=== PATIENT | female | born 1985 | race Hispanic/Latino ===

== ENCOUNTER 2024-10-26 21:40 | Emergency (ER) | payer SELFPAY ==
[~2024-10-26] VITALS: Ht 162.6 cm; Wt 70.8 kg
--- NOTE | 2024-10-26 22:04 | NUR ---
PT CARE ASSUMED AT THIS TIME
[2024-10-26 22:41] LABS: BASOPHILS # (AUTO) 0.07 K/uL (0.00-0.20); BASOPHILS % (AUTO) 0.7 % (0.0-5.0); EOSINOPHILS # (AUTO) 0.09 K/uL (0.00-0.70); EOSINOPHILS % (AUTO) 0.9 % (0.0-8.0); HEMATOCRIT 36.1 % (36-48); IMMATURE GRANULOCYTE ABSOLUTE 0.04 K/uL (0-1); LYMPHOCYTES # (AUTO) 1.5 K/uL (1.0-4.8); MEAN CORPUSCULAR HEMOGLOBIN 29.6 pg (27.0-33.0); MEAN CORPUSCULAR HGB CONC 33.8 g/dL (32.0-36.0); MEAN CORPUSCULAR VOLUME 87.6 fL (79-99); MONOCYTES # (AUTO) 0.5 K/uL (0.1-1.0); MONOCYTES % (AUTO) 5.2 % (3.0-13.0); NEUTROPHILS # (AUTO) 8.2 K/uL (1.8-7.7); NEUTROPHILS % (AUTO) 78.8 % (40.0-77.0); PLATELET COUNT (AUTO) 273 K/uL (130-400); RED BLOOD CELL COUNT(AUTO) 4.12 MIL/uL (4.00-5.50); RED CELL DISTRIBUTION WIDTH 12.3 % (11.0-15.5); WHITE BLOOD COUNT (AUTO) 10.3 K/uL (4.8-10.8)
[2024-10-26 22:44] LABS: APPEARANCE,URINE CLOUDY (CLEAR); BILIRUBIN,URINE NEGATIVE (NEGATIVE); COLOR,URINE YELLOW (YELLOW); GLUCOSE, URINE (UA) NEGATIVE (NEGATIVE); KETONES,URINE NEGATIVE (NEGATIVE); LEUKOCYTE ESTERASE ,URINE 500 Leu/uL (NEGATIVE); NITRATE,URINE NEGATIVE (NEGATIVE); OCCULT BLOOD,URINE MODERATE (NEGATIVE); PH,URINE 6.5 (5.0-8.0); PROTEIN,URINE 30 mg/dL (NEGATIVE); UROBILINOGEN,URINE 0.2 mg/dL (0.2-1.0)
[2024-10-26 22:46] LABS: ADD UA MICROSCOPIC YES
[2024-10-26 22:48] LABS: BACTERIA,URINE FEW /HPF (None Seen); MUCUS,URINE RARE LPF (None Seen); SQUAMOUS EPITHELIAL CELL,UR MANY /HPF (0-2); WBC,URINE TNTC /HPF (0-1)
[2024-10-26 22:49] LABS: HCG,QUALITATIVE URINE NEGATIVE (NEGATIVE)
[2024-10-26] MEDS: PANTOPrazole 40 MG/VIAL IVP ONE (22:52)
[2024-10-26] MEDS: 0.9%NACL 1000ML 1,000 ML IV ONE (22:52)
[2024-10-26] MEDS: ondanSETRON 4MG INJ IVP ONE (22:53)
[2024-10-26] MEDS: morPHINE 4 MG SYG IVP ONE (22:53)
[2024-10-26 23:05] LABS: CREATININE 0.8 mg/dL (0.5-1.0); POTASSIUM 3.5 mmol/L (3.5-5.1)
[2024-10-26 23:09] LABS: ALBUMIN 4.1 g/dL (3.5-5.0); BILIRUBIN,DIRECT 0.1 mg/dL (0.0-0.3); BILIRUBIN,TOTAL 0.6 mg/dL (0.2-1.0); TOTAL PROTEIN, SERUM 8.1 g/dL (6.0-8.3)
[2024-10-27] MEDS: cefTRIAXone 1G VIAL IVPB ONE (00:16)
[2024-10-27] MEDS ORDERED: NITR100C4 PO (00:36)
--- NOTE | 2024-10-27 00:37 | ERN ---
ED Note History of Present Illness Stated Complaint: MID BACK PAIN Chief Complaint: Back Pain-No Injury Time Seen by MD: 21:46 Time Seen by Midlevel: 21:46 Dictation: The patient is a 38-year-old female with history of gallstones who presents to the emergency department with complaints of epigastric pain, right upper abdominal pain that radiates to the back onset 3:30 p.m. associated with nausea and nonbloody vomiting. Patient denies any diarrhea or constipation. Denies any fevers. Denies any urinary discomfort. Allergies: Coded Allergies: No Known Drug Allergies (Unverified Allergy, Unknown, 10/26/24) Past Medical History Past Medical History: Gallstones Surgical History: None LMP: Oct 25, 2024 RN Note Reviewed/Agreed w/PFSH: Yes Review of System Dictation Constitutional: Negative for fever,chills, and weight loss Eyes: Negative for injury, pain,redness, and discharge ENT: Negative for injury,pain or swelling Cardiovascular: Negative for chest pain, palpitations, and edema Respiratory: Negative for shortness of breath, cough, and wheezing, Abdomen/GI: Negative for diarrhea, and constipation positive for abdominal pain, nausea, vomiting, Back: Negative for injury , positive for back : Negative for injury, bleeding and discharge MS/Extremity: Negative for injury and deformity Skin: Negative for rash, and discoloration Neuro: Negative for headache, weakness, numbness, tingling, and seizure Psych: Negative for suicide ideation, homicidal ideation, and hallucinations Initial Vital Sign VS Vital Signs Date Time Temp Pulse Resp B/P (MAP) Pulse Ox O2 Delivery O2 Flow Rate FiO2 10/26/24 21:42 98.1 86 18 121/79 100 Room Air 0 10/26/24 22:10 21 Physical Exam Dictation Vital Signs reviewed General Appearance: Alert, oriented x 3, no acute distress, well developed, nourished. Head and Face: non-traumatic. Eyes: PERRL, pink conjunctivas, eyelid no trauma, anterior chamber with arcus senilis. Ears: Pinnas intact and no signs of trauma or erythema ear canals clear and no discharge TM no erythema Nose: No discharge, no bleeding. Oropharynx: Mouth normal, tongue pink. pharynx clear,no erythema, tonsils no exudates, no abscesses noted, mucous membrane moist Neck: Supple, non-tender, no thyromegaly, no masses, no JVD, no bruits Breast:Deferred Chest:No tenderness, no crepitus, no paradoxical movement, no retractions Lungs:Clear, well-ventilated, symmetric, no rales, no wheezing, no rhonchi, no stridor, good breath sounds bilaterally Heart: Regular rate, regular rhythm, no murmur, no gallops Vascular: no peripheral edema, Abdomen: Soft, positive bowel sounds, nondistended, no guarding, nontender, no rebound, no masses no hepatomegaly, no splenomegaly, no Reyes's sign, no hernias. Rectal: Deferred Genital: Deferred Neurological: Normal speech, motor function intact, sensory function intact Musculoskeletal: Neck nontender, full range of motion, back nontender, full range of motion, Extremities: nontender, full range of motion Skin: Color pink, dry, no turgor, no rash, no lacerations, no abrasions, no contusions. Lymphatic: Deferred Results (Laboratory/Radiology) Laboratory/Radiology Laboratory Tests Test 10/26/24 21:56 10/26/24 22:27 Urine Color YELLOW (YELLOW) Urine Appearance CLOUDY (CLEAR) H Urine pH 6.5 (5.0-8.0) Urine Specific [place] 1.027 (1.001-1.031) Urine Protein 30 mg/dL (NEGATIVE) H Urine Glucose (UA) NEGATIVE mg/dL (NEGATIVE) Urine Ketones NEGATIVE mg/dL (NEGATIVE) Urine Occult Blood MODERATE (NEGATIVE) H Urine Nitrate NEGATIVE (NEGATIVE) Urine Bilirubin NEGATIVE mg/dL (NEGATIVE) Urine Urobilinogen 0.2 mg/dL (0.2-1.0) Urine Leukocyte Esterase 500 Grayson/uL (NEGATIVE) H Urine RBC 11-25 /HPF (0-1) H Urine WBC TNTC /HPF (0-1) H Urine Squamous Epithelial Cells MANY /HPF (0-2) Urine Bacteria FEW /HPF (None Seen) Urine HCG, Qualitative NEGATIVE (NEGATIVE) White Blood Count 10.3 K/uL (4.8-10.8) Red Blood Count 4.12 MIL/uL (4.00-5.50) Hemoglobin 12.2 g/dL (12.0-16.0) Hematocrit 36.1 % (36-48) Mean Corpuscular Volume 87.6 fL (79-99) Mean Corpuscular Hemoglobin 29.6 pg (27.0-33.0) Mean Corpuscular Hemoglobin Concent 33.8 g/dL (32.0-36.0) Red Cell Distribution Width 12.3 % (11.0-15.5) Platelet Count 273 K/uL (130-400) Mean Platelet Volume 10.6 fL (7.5-10.5) H Immature Granulocyte % (Auto) 0.4 % (0-1) Neutrophils (%) (Auto) 78.8 % (40.0-77.0) H Lymphocytes (%) (Auto) 14.0 % (21.0-51.0) L Monocytes (%) (Auto) 5.2 % (3.0-13.0) Eosinophils (%) (Auto) 0.9 % (0.0-8.0) Basophils (%) (Auto) 0.7 % (0.0-5.0) Neutrophils # (Auto) 8.2 K/uL (1.8-7.7) H Lymphocytes # (Auto) 1.5 K/uL (1.0-4.8) Monocytes # (Auto) 0.5 K/uL (0.1-1.0) Eosinophils # (Auto) 0.09 K/uL (0.00-0.70) Basophils # (Auto) 0.07 K/uL (0.00-0.20) Absolute Immature Granulocyte (auto 0.04 K/uL (0-1) Nucleated Red Blood Cells 0.0 % (0.0-0.19) Sodium Level 139 mmol/L (136-145) Potassium Level 3.5 mmol/L (3.5-5.1) Chloride Level 105 mmol/L (101-111) Carbon Dioxide Level 26 mmol/L (21-32) Blood Urea Nitrogen 17 mg/dL (7-18) Creatinine 0.8 mg/dL (0.5-1.0) Glomerular Filtration Rate Calc 97 mL/min (>90) Random Glucose 101 mg/dL (70-105) Total Calcium 9.0 mg/dL (8.5-10.1) Total Bilirubin 0.6 mg/dL (0.2-1.0) Direct Bilirubin 0.1 mg/dL (0.0-0.3) Aspartate Amino Transf (AST/SGOT) 15 U/L (10-37) Alanine Aminotransferase (ALT/SGPT) 25 U/L (12-78) Alkaline Phosphatase 59 U/L (50-136) Total Protein 8.1 g/dL (6.0-8.3) Albumin 4.1 g/dL (3.5-5.0) Lipase 44 U/L (16-77) Labs Reviewed?: Yes ED Course ED Course Orders Procedure Category Date Status Time Cbc With Differential LAB 10/26/24 Complete 21:57 ,Urine Test LAB 10/26/24 Complete 21:57 Urinalysis Profile LAB 10/26/24 Complete 21:57 0.9%Nacl 1000ml (Ns PHA 10/26/24 Complete 1000ml) 22:00 Morphine 4mg Syg PHA 10/26/24 Complete (Morphine 4mg Syg) 22:00 Ondansetron 4mg Inj PHA 10/26/24 Complete (Zofran 4mg Inj) 22:00 Pantoprazole 40mg Inj PHA 10/26/24 Complete (Protonix 40mg Inj 22:00 Lipase LAB 10/26/24 Complete 21:57 Basic Metabolic Panel LAB 10/26/24 Complete 21:57 Hepatic Function Panel LAB 10/26/24 Complete 21:57 Us Abdominal Ruq\Ltd US 10/26/24 Taken 21:57 Culture Urine JOHANA 10/26/24 In Process 22:46 Ceftriaxone 1g Vial PHA 10/27/24 Complete (Rocephine 1g Inj) 00:00 Current Medications Medications (Trade) Dose Ordered Sig/Rubens Route PRN Reason Start Time Stop Time Status Last Admin Dose Admin Ceftriaxone Sodium (ROCEphine 1G INJ) 1 gm ONCE ONCE IVPB 10/27/24 00:00 10/27/24 00:02 DC 10/27/24 00:16 Morphine Sulfate (morPHINE 4MG SYG) 4 mg ONCE ONCE IVP 10/26/24 22:00 10/26/24 22:01 DC 10/26/24 22:53 Ondansetron HCl (zoFRAN 4MG INJ) 4 mg ONCE ONCE IVP 10/26/24 22:00 10/26/24 22:01 DC 10/26/24 22:53 Pantoprazole Sodium (PROTonix 40MG INJ) 40 mg ONCE ONCE IVP 10/26/24 22:00 10/26/24 22:01 DC 10/26/24 22:52 Sodium Chloride 1,000 ml @ 0 mls/hr ONCE ONCE IV 10/26/24 22:00 10/26/24 22:01 DC 10/26/24 22:52 Vital Signs Date Time Temp Pulse Resp B/P (MAP) Pulse Ox O2 Delivery O2 Flow Rate FiO2 10/26/24 22:10 97.9 92 17 118/68 99 Room Air* 0 21 10/26/24 21:42 98.1 86 18 121/79 100 Room Air 0 Medical Decision Making MDM The patient is a 38-year-old female with history of gallstones who presents to the emergency department with complaints of epigastric pain, right upper abdominal pain that radiates to the back onset 3:30 p.m. associated with nausea and nonbloody vomiting. Patient denies any diarrhea or constipation. Denies any fevers. Denies any urinary discomfort. CBC showed no leukocytosis, no anemia, chemistry showed no electrolyte imbalance, negative lipase, negative liver enzymes, urinalysis positive for leukocyte esterase. Moderate blood but patient is on her menstrual cycle. Patient was giving IV Rocephin. Ultrasound revealed gallstones in the gallbladder, CBD 4 mm, on physical exam patient has no Reyes's sign, abdomen is soft and nontender. No flank pain. No CVA tenderness. Patient with stable vital signs, in no acute distress. Reports that she is no longer having any pain. Labs and imaging discussed with the patient who agrees to follow up with PCP. Differential diagnosis: Gastroenteritis, cholelithiasis, cholecystitis, dehydration Need for hospitalization: Patient does not meet criteria for hospitalization. There are no social concerns with this patient. DX & DISP Disposition: Discharge Departure Impression: Primary Impression: Biliary colic Additional Impressions: Cholelithiasis, Abdominal pain, UTI (urinary tract infection) Condition: Stable Scripts Nitrofurantoin Monohyd/M-Cryst (Macrobid 100 mg Capsule) 100 Mg Capsule 1 CAP PO BID for 5 Days, #10 CAP 0 Refills Prov: DEMETRIS MARTINEZ 10/27/24 Additional Instructions: Please take your antibiotics as prescribed and until finished. Avoid any fatty foods that exacerbate your symptoms. If symptoms worsen please return to ER. FOLLOW-UP WITH PRIMARY CARE PROVIDER IN 1 TO 2 DAYS. TAKE MEDICATIONS DIRECTED HERE IN THE EMERGENCY ROOM. OKAY TO CONTINUE HOME MEDICATIONS UNLESS OTHERWISE DISCUSSED DURING YOUR VISIT IN THE EMERGENCY ROOM TODAY. RETURN TO YOUR NEAREST EMERGENCY ROOM IF SYMPTOMS WORSEN OR IF THERE IS NO IMPROVEMENT. CALL 911 IF YOU NEED IMMEDIATE ASSISTANCE. TAKE TYLENOL OR MOTRIN [id number] NEEDED AND IF NO CONTRAINDICATIONS ARE PRESENT. INCREASE ORAL HYDRATION. A WOUND CULTURE OR URINE CULTURE WAS ORDERED HERE IN THE EMERGENCY ROOM DEPARTMENT PLEASE FOLLOW-UP WITH PRIMARY CARE PROVIDER AND ADVISE THEM TO GET REPEAT PORTS FROM OUR FACILITY. IF YOU HAD ANY DEWAYNE WRAP/SPLINTS THAT WERE APPLIED HERE, PLEASE DO NOT REMOVE THEM UNTIL YOU SEE YOUR PRIMARY CARE OR SPECIALTY. Referrals: SELF,REFERRAL (PCP) Time of Disposition: 00:36 I have reviewed the case, and I agree with, Diagnosis and Plan DEMETRIS MARTINEZ APPLIED BEHAVIOR SCIENCE SPECIALIST Oct 27, 2024 00:37
[2024-10-27 01:16] VITALS: BP 110/70; PULSE 72; RESP 17; TEMP 98; O2SAT 100
--- NOTE | 2024-10-27 09:16 | HMCIMG ---
Exam Type: US ABDOMINAL RUQ\E\LTD Clinical Information: abd pain Comparison: None Findings: The liver shows normal echogenicity and size. No hepatic lesions are seen. Doppler evaluation shows patent portal and hepatic veins. The gallbladder shows cholelithiasis. No acute or chronic inflammation is noted. There is a phrygian cap. The gallbladder wall measures 3 mm. No bile duct dilatation is noted. The common bile duct measures 4 mm. The right kidney measures 9.8 x 5 cm, and shows no hydronephrosis or calculi, masses or other abnormalities. The pancreas is unremarkable. The aorta and inferior vena cava show no significant abnormalities. IMPRESSION: Cholelithiasis.
== END 2024-10-27 01:22 | disposition home or self-care (01) ==
LOC: EDH 21:40
DX: K80.50 Calculus of bile duct without cholangitis or cholecystitis without obstruction (principal); K80.20 Calculus of gallbladder without cholecystitis without obstruction; R10.9 Unspecified abdominal pain; N39.0 Urinary tract infection, site not specified
CPT/HCPCS: 99285; 96365; 96375; 76705; 80076; 80048; 83690; 85025; 87086; 81001; 81025; 36415; J7030; J2405; J2270; J2470; J0696

== ENCOUNTER 2024-11-05 04:53 | Emergency (ER) | payer SELFPAY ==
[~2024-11-05] VITALS: Ht 162.6 cm; Wt 70.8 kg
[~2024-11-05 04:53] MED LIST: NITR100C4 PO
[2024-11-05 05:16] LABS: BASOPHILS # (AUTO) 0.11 K/uL (0.00-0.20); BASOPHILS % (AUTO) 1.3 % (0.0-5.0); EOSINOPHILS # (AUTO) 0.16 K/uL (0.00-0.70); EOSINOPHILS % (AUTO) 1.8 % (0.0-8.0); HEMATOCRIT 36.5 % (36-48); IMMATURE GRANULOCYTE ABSOLUTE 0.04 K/uL (0-1); LYMPHOCYTES # (AUTO) 2.8 K/uL (1.0-4.8); MEAN CORPUSCULAR HEMOGLOBIN 29.6 pg (27.0-33.0); MEAN CORPUSCULAR HGB CONC 32.3 g/dL (32.0-36.0); MEAN CORPUSCULAR VOLUME 91.5 fL (79-99); MONOCYTES # (AUTO) 0.7 K/uL (0.1-1.0); MONOCYTES % (AUTO) 7.6 % (3.0-13.0); NEUTROPHILS # (AUTO) 4.9 K/uL (1.8-7.7); NEUTROPHILS % (AUTO) 56.8 % (40.0-77.0); PLATELET COUNT (AUTO) 305 K/uL (130-400); RED BLOOD CELL COUNT(AUTO) 3.99 MIL/uL (4.00-5.50); RED CELL DISTRIBUTION WIDTH 12.9 % (11.0-15.5); WHITE BLOOD COUNT (AUTO) 8.7 K/uL (4.8-10.8)
[2024-11-05 05:17] LABS: ADD UA MICROSCOPIC YES; APPEARANCE,URINE CLOUDY (CLEAR); BILIRUBIN,URINE NEGATIVE (NEGATIVE); COLOR,URINE LIGHT-YELLOW (YELLOW); GLUCOSE, URINE (UA) NEGATIVE (NEGATIVE); KETONES,URINE NEGATIVE (NEGATIVE); LEUKOCYTE ESTERASE ,URINE 25 Leu/uL (NEGATIVE); NITRATE,URINE NEGATIVE (NEGATIVE); OCCULT BLOOD,URINE SMALL (NEGATIVE); PH,URINE 7.5 (5.0-8.0); PROTEIN,URINE NEGATIVE (NEGATIVE); UROBILINOGEN,URINE 0.2 mg/dL (0.2-1.0)
[2024-11-05] MEDS: 0.9%NACL 1000ML 1,000 ML IV ONE (05:17)
[2024-11-05] MEDS: ondanSETRON 4MG INJ IVP ONE (05:17)
[2024-11-05 05:19] LABS: BACTERIA,URINE RARE /HPF (None Seen); MUCUS,URINE RARE LPF (None Seen); SQUAMOUS EPITHELIAL CELL,UR MOD /HPF (0-2)
--- NOTE | 2024-11-05 05:32 | ERN ---
ED Note History of Present Illness Stated Complaint: ABD PAIN Chief Complaint: Abdominal Pain Time Seen by MD: 05:22 Dictation: This is a 38-year-old female who was just seen on 10/26/2024 for abdominal pain nausea and vomitings and similar presentation. She underwent ultrasound of the abdomen that showed cholelithiasis. She was treated and discharged to home. She comes back in today again with the same symptoms. No fever chills or rigors. She admitted to nausea and some loose stool. She stated that she ate tacos with cheese and deep fried meet and 2 hours after that she began experiencing the symptoms Temperature 96.9 pulse 84 respirations 20 blood pressure 131/89 pulse oximetry 98% on room air History of cholelithiasis. Allergies: Coded Allergies: No Known Drug Allergies (Unverified Allergy, Unknown, 10/26/24) Home Meds Active Scripts Nitrofurantoin Monohyd/M-Cryst (Macrobid 100 mg Capsule) 100 Mg Capsule, 1 CAP PO BID for 5 Days, #10 CAP 0 Refills Prov:DEMETRIS MARTINEZ PRESCRIPTION CLERK [employer]ES 10/27/24 Past Medical History Past Medical History: Gallstones Surgical History: None Family History: Negative Social History: Negative History: Not Applicable (Urine test on 10/26/2024 was negative) LMP: October 21, 2024 RN Note Reviewed/Agreed w/PFSH: Yes Review of System Dictation Constitutional: Negative for fever,chills, and weight loss Eyes: Negative for injury, pain,redness, and discharge ENT: Negative for injury,pain or swelling Cardiovascular: Negative for chest pain, palpitations, and edema Respiratory: Negative for shortness of breath, cough, and wheezing, Abdomen/GI: Positive for abdominal pain, nausea, vomiting, diarrhea, and con stipation Back: Negative for injury and pain : Negative for injury, bleeding and discharge MS/Extremity: Negative for injury and deformity Skin: Negative for rash, and discoloration Neuro: Negative for headache, weakness, numbness, tingling, and seizure Psych: Negative for suicide ideation, homicidal ideation, and hallucinations Initial Vital Sign VS Vital Signs Date Time Temp Pulse Resp B/P (MAP) Pulse Ox O2 Delivery O2 Flow Rate FiO2 11/05/24 04:54 97.0 84 20 131/89 98 Room Air 11/05/24 05:04 0 21 Physical Exam Dictation General: awake, alert, NAD Head/Face: Normocephalic, atraumatic Eyes: PERRL, EOMI, vision at baseline ENT: oral cavity clear, TMs clear, no signs of infection Neck: Trachea midline, supple, no nuchal rigidity Cardiovascular: RRR, normal S1/S2, No MRGs, no JVD Respiratory: CTAB, no respiratory distress, No rales or wheezes Abdomen: Soft, non-tender, non-distended, normal bowel sounds, no guarding or rebound. Skin: Warm, dry, normal turgor, no rash MS/Extremity: Pulses equal, no cyanosis, neurovascular intact, FROM Neuro: COAx4, GCS 15, strength 5/5, CN 2-12 intact, normal cerebellar exam, normal gait, Psych: Normal behavior, mood, and affect normal Extremities-trace edema without any palpable cords, Homans sign is negative Results (Laboratory/Radiology) Laboratory/Radiology Laboratory Tests Test 11/05/24 05:00 11/05/24 05:03 White Blood Count 8.7 K/uL (4.8-10.8) Red Blood Count 3.99 MIL/uL (4.00-5.50) L Hemoglobin 11.8 g/dL (12.0-16.0) L Hematocrit 36.5 % (36-48) Mean Corpuscular Volume 91.5 fL (79-99) Mean Corpuscular Hemoglobin 29.6 pg (27.0-33.0) Mean Corpuscular Hemoglobin Concent 32.3 g/dL (32.0-36.0) Red Cell Distribution Width 12.9 % (11.0-15.5) Platelet Count 305 K/uL (130-400) Mean Platelet Volume 10.5 fL (7.5-10.5) Immature Granulocyte % (Auto) 0.5 % (0-1) Neutrophils (%) (Auto) 56.8 % (40.0-77.0) Lymphocytes (%) (Auto) 32.0 % (21.0-51.0) Monocytes (%) (Auto) 7.6 % (3.0-13.0) Eosinophils (%) (Auto) 1.8 % (0.0-8.0) Basophils (%) (Auto) 1.3 % (0.0-5.0) Neutrophils # (Auto) 4.9 K/uL (1.8-7.7) Lymphocytes # (Auto) 2.8 K/uL (1.0-4.8) Monocytes # (Auto) 0.7 K/uL (0.1-1.0) Eosinophils # (Auto) 0.16 K/uL (0.00-0.70) Basophils # (Auto) 0.11 K/uL (0.00-0.20) Absolute Immature Granulocyte (auto 0.04 K/uL (0-1) Nucleated Red Blood Cells 0.0 % (0.0-0.19) Sodium Level 140 mmol/L (136-145) Potassium Level 3.8 mmol/L (3.5-5.1) Chloride Level 105 mmol/L (101-111) Carbon Dioxide Level 28 mmol/L (21-32) Blood Urea Nitrogen 15 mg/dL (7-18) Creatinine 0.8 mg/dL (0.5-1.0) Glomerular Filtration Rate Calc 97 mL/min (>90) Random Glucose 109 mg/dL (70-105) H Total Calcium 8.9 mg/dL (8.5-10.1) Total Bilirubin 0.5 mg/dL (0.2-1.0) Aspartate Amino Transf (AST/SGOT) 30 U/L (10-37) Alanine Aminotransferase (ALT/SGPT) 39 U/L (12-78) Alkaline Phosphatase 64 U/L (50-136) Total Protein 7.7 g/dL (6.0-8.3) Albumin 3.8 g/dL (3.5-5.0) Lipase 49 U/L (16-77) Urine Color LIGHT-YELLOW (YELLOW) Urine Appearance CLOUDY (CLEAR) H Urine pH 7.5 (5.0-8.0) Urine Specific [place] 1.020 (1.001-1.031) Urine Protein NEGATIVE mg/dL (NEGATIVE) Urine Glucose (UA) NEGATIVE mg/dL (NEGATIVE) Urine Ketones NEGATIVE mg/dL (NEGATIVE) Urine Occult Blood SMALL (NEGATIVE) H Urine Nitrate NEGATIVE (NEGATIVE) Urine Bilirubin NEGATIVE mg/dL (NEGATIVE) Urine Urobilinogen 0.2 mg/dL (0.2-1.0) Urine Leukocyte Esterase 25 Grayson/uL (NEGATIVE) H Urine RBC 2-5 /HPF (0-1) H Urine WBC 2-5 /HPF (0-1) H Urine Squamous Epithelial Cells MOD /HPF (0-2) Urine Amorphous Crystals (Auto) MOD /LPF (None Seen) Urine Bacteria RARE /HPF (None Seen) Labs Reviewed?: Yes Ultrasound Comment: REASON: abd pain ORDERING PHYSICIAN: DEMETRIS MARTINEZ PROCEDURE: [id number] - US ABDOMINAL RUQ\LTD Exam Type: US ABDOMINAL RUQ\E\LTD Clinical Information: abd pain Comparison: None Findings: The liver shows normal echogenicity and size. No hepatic lesions are seen. Doppler evaluation shows patent portal and hepatic veins. The gallbladder shows cholelithiasis. No acute or chronic inflammation is noted. There is a phrygian cap. The gallbladder wall measures 3 mm. No bile duct dilatation is noted. The common bile duct measures 4 mm. The right kidney measures 9.8 x 5 cm, and shows no hydronephrosis or calculi, masses or other abnormalities. The pancreas is unremarkable. The aorta and inferior vena cava show no significant abnormalities. IMPRESSION: Cholelithiasis. DICTATED BY: THEO RENNER MD DATE: 10/27/24912 ELECTRONICALLY SIGNED BY: THEO RENNER MD DATE: 10/27/24915 ED Course ED Course Orders Procedure Category Date Status Time Vital Signs Per CPOE 11/05/24 Transmitted Routine 05:09 Saline Lock Iv CPOE 11/05/24 Transmitted 05:09 Cbc With Differential LAB 11/05/24 Complete 05:09 Comprehensive LAB 11/05/24 Complete Metabolic Panel 05:09 Lipase LAB 11/05/24 Complete 05:09 Urinalysis Profile LAB 11/05/24 Complete 05:09 Ondansetron 4mg Inj PHA 11/05/24 Complete (Zofran 4mg Inj) 05:30 0.9%Nacl 1000ml (Ns PHA 11/05/24 Complete 1000ml) 05:30 Ketorolac PHA 11/05/24 Complete Tromethamine 15mg/Ml 06:00 Famotidine 20mg Vial PHA 11/05/24 Complete (Pepcid 20mg Vial) 06:00 Current Medications Medications (Trade) Dose Ordered Sig/Rubens Route PRN Reason Start Time Stop Time Status Last Admin Dose Admin Famotidine (Pepcid 20mg Vial) 20 mg ONCE ONCE IV 11/05/24 06:00 11/05/24 06:01 DC 11/05/24 05:43 Ketorolac Tromethamine (toRADol) 15 mg ONCE ONCE IV 11/05/24 06:00 11/05/24 06:01 DC 11/05/24 05:43 Ondansetron HCl (zoFRAN 4MG INJ) 4 mg ONCE ONCE IVP 11/05/24 05:30 11/05/24 05:31 DC 11/05/24 05:17 Sodium Chloride 1,000 ml @ 0 mls/hr ONCE ONCE IV 11/05/24 05:30 11/05/24 05:31 DC 11/05/24 05:17 Vital Signs Date Time Temp Pulse Resp B/P (MAP) Pulse Ox O2 Delivery O2 Flow Rate FiO2 11/05/24 05:52 98.2 69 17 131/78 100 Room Air* 0 21 11/05/24 05:04 98.4 85 19 125/74 100 Room Air* 0 21 11/05/24 04:54 97.0 84 20 131/89 98 Room Air We will perform diagnostic labs,and administer medications according to the patient's complaint. Once the results are available, will review and personally interpreted the labs to rule out any acute life-threatening emergency the trach require immediate intervention and treatment. I will then re-evaluate the patient after treatment and diagnostic exams have return to determine whether the patient requires any further testing, can safely be discharged home or need further admission to hospital for additional treatment and evaluation. CBC BNP 7 is with a normal limits LFTs are normal. Urinalysis has improved significantly 6:20 a.m. patient responded very well to the symptomatic management. I school counsellor ed her extensively on dietary modifications and if symptoms become recurrent she needs to see a surgeon for evaluation of cholecystectomy. She verbalized full understanding Medical Decision Making MDM MDM: Differential diagnosis: Biliary colic, cholecystitis, colitis, gastritis, esophagitis, constipation Rationale: Tests considered and ordered secondary to shared decision making include: Previous outside records reviewed: Old ER visits. Risk of complication and/or morbidity or mortality of patient management: None Medications-Per medication reconciliation Need for hospitalization: Patient does not meet criteria for hospitalization. Need for emergency major/minor surgery: No There are no social concerns with this patient. Prescription drug management Prescriptions will include symptomatic care Patient's prior external medical records from other ER visits were reviewed by me as indicated. Prior testing and results from previous visits were reviewed. Prior tests were taken into account with medical decision making and resource utilization, independent historian/historians were used to obtain complete medical history. I independently interpreted the test that were performed, results were reviewed by me and considered findings on radiology if ordered. Medical management and examination interpretation discussions were had by me with other qualified healthcare professionals as indicated for the patient's care. Problem List Problem List: (1) Abdominal pain (2) Biliary colic (3) Cholelithiasis DX & DISP Disposition: Discharge Departure Impression: Primary Impression: Abdominal pain Additional Impressions: Biliary colic, Cholelithiasis Condition: Stable Scripts Ondansetron (Ondansetron Odt) 4 Mg Tab.rapdis 4 MG PO Q6HPRN PRN for nausea, #16 TAB 0 Refills Prov: FADI PEÑALOZA MD 11/05/24 Ketorolac Tromethamine (Toradol) 10 Mg Tab 10 MG PO QID for pain for 5 Days, #20 TAB 0 Refills Prov: FADI PEÑALOZA MD 11/05/24 Additional Instructions: Patient and the caregiver have been informed of all the diagnostic tests and the imaging conducted during the today's visit to the emergency room and has verbalized understanding of the results I have personally reviewed and interpreted all diagnostic exams performed here in the ER today as well as the vital signs documented by the nursing staff. The patient is now being discharged to home and should follow up with the primary care physician or the specialist as directed by the ER staff. Follow-up with primary care provider in 1 to 2 days. Take medications as directed here in the emergency room. Okay to continue home medications unless otherwise discussed during your visit in the emergency room today. Return to your nearest emergency room if symptoms worsen or if there is no improvement. Call 911 if you need immediate assistance. Take Tylenol or Motrin [id number] as needed and if no contraindications are present. Increase oral hydration. A wound culture or urine culture was ordered here in the emergency room department please follow-up with primary care provider and advise them to get repeat ports from our facility. If you had any Leobardo wrap/splints that were applied here, please do not remove them until you see your primary care or specialty. Referrals: SELF,REFERRAL (PCP) FADI PEÑALOZA MD Nov 05, 2024 05:32
[2024-11-05 05:36] LABS: CREATININE 0.8 mg/dL (0.5-1.0); POTASSIUM 3.8 mmol/L (3.5-5.1)
[2024-11-05 05:40] LABS: ALBUMIN 3.8 g/dL (3.5-5.0); BILIRUBIN,TOTAL 0.5 mg/dL (0.2-1.0); TOTAL PROTEIN, SERUM 7.7 g/dL (6.0-8.3)
[2024-11-05] MEDS: FAMOTIDINE 20MG VIAL IV ONE (05:43)
[2024-11-05] MEDS: ketOROlac 15MG/ML VIAL (15MG/ML) IV ONE (05:43)
[2024-11-05] MEDS ORDERED: KETO10 PO (06:22)
[2024-11-05] MEDS ORDERED: ONDA-243 PO (06:22)
[2024-11-05 06:30] VITALS: BP 121/69; PULSE 65; RESP 18; TEMP 98; O2SAT 99
== END 2024-11-05 06:33 | disposition home or self-care (01) ==
LOC: EDH 04:53
DX: K80.50 Calculus of bile duct without cholangitis or cholecystitis without obstruction (principal); K80.20 Calculus of gallbladder without cholecystitis without obstruction; R10.9 Unspecified abdominal pain; Z79.899 Other long term (current) drug therapy
CPT/HCPCS: 99284; 96374; 96375; 96361; 80053; 83690; 85025; 81001; 36415; J1885; J3490; J7030; J2405